=== PATIENT | female | born 1980 | race Native Hawaiian/Other Pacific Islander ===

== ENCOUNTER → 2024-06-23 | Outpatient (CLI) | payer OTHER ==
--- NOTE | 2024-06-23 08:16 | US ---
EXAMINATION TYPE: US abdomen complete DATE OF EXAM: 06/23/2024 COMPARISON: NONE CLINICAL INDICATION: Female, 44 years old with history of R10.84 ABD PAIN; left sided pain, Dm, HTN, Cholecystectomy TECHNIQUE: Grayscale and color Doppler imaging of the abdomen was performed. FINDINGS: EXAM MEASUREMENTS: Liver Length: 16.7 cm Gallbladder Wall: Surgically absent CBD: 0.4 cm, color Doppler imaging was utilized to isolate the common bile duct for measurement. Spleen: 10.5 cm Right Kidney: 12.8x5.4x7.3 cm Left Kidney: 11.8x5.5x5.1 cm TRACK ANNOUNCER NOTES: limited due to pt body habitus/ overlying bowel Pancreas: Obscured by bowel gas Liver: Increased attenuation, decreased visualization of vessels suggestive of fatty infiltrate Gallbladder: Surgically absent Evidence for sonographic Osborn's sign: No CBD: wnl Spleen: wnl Right Kidney: No hydronephrosis or masses seen Left Kidney: No hydronephrosis or masses seen Upper IVC: partially visualized Abd Aorta: partially visualized IMPRESSION: 1. No evidence for acute process. 2. Hepatic steatosis. [facility], , 06/23/2024 8:14 AM
== END | disposition home or self-care (01) ==
LOC: RADUSWWP 07:02
PROVIDERS: ATTEND Family Medicine
DX: K76.0 Fatty (change of) liver, not elsewhere classified (principal); I10 Essential (primary) hypertension; E11.9 Type 2 diabetes mellitus without complications; Z90.49 Acquired absence of other specified parts of digestive tract
CPT/HCPCS: 76700

== ENCOUNTER → 2024-12-22 | Day surgery (SDC) | payer OTHER ==
--- NOTE | 2024-12-22 09:11 | USB ---
Risk Values: Mariela 5 year model risk: 0.9%. NCI Lifetime model risk: 10.5%. Findings: Ultrasound was performed left breast in the upper outer quadrant with attention to the 11:00 position. The lesion could not be seen with certainty and biopsy was deferred. Recommend stereotactic core biopsy. Recommend placement of the clip postbiopsy and confirming this is the same location as the previously described ultrasound abnormality. Management: Stereotactic Core Biopsy of the left breast. A clinical breast exam by your physician is recommended on an annual basis and results should be correlated with mammographic findings. This exam should not preclude additional follow-up of suspicious palpable abnormalities. Results were given to the patient verbally at the time of exam. [facility], , 12/22/2024 9:08 AM. Electronically signed and approved by: Kwabena Acevedo M.D. Radiologis
== END ==
LOC: RADUSWWP 07:22
PROVIDERS: ATTEND Family Medicine
DX: Z53.8 Procedure and treatment not carried out for other reasons (principal); R92.8 Other abnormal and inconclusive findings on diagnostic imaging of breast

== ENCOUNTER → 2025-01-05 | Day surgery (SDC) | payer OTHER ==
[~2025-01-05] MED LIST: ALPRAZolam 0.25 MG TAB PO PRN; ALPRAZolam 0.5 MG TAB PO PRN
[2025-01-05 10:41] VITALS: RESP 16
[2025-01-05 11:30] VITALS: BP 145/97; PULSE 78; TEMP 98.2
--- NOTE | 2025-01-17 08:24 | MM ---
Risk Values: Mariela 5 year model risk: 0.9%. NCI Lifetime model risk: 10.5%. Prior Study Comparison: 10/12/2020 Bilateral Screening Mammogram, [facility]. 11/07/2021 Bilateral Screening Mammogram, [facility]. 12/08/2024 Bilateral MG screening mammo w CAD, [facility]. Pathology Description: Marker Left Behind. Approach: CC FA Needle Type: Eviva Cores: 12 Skin Nicks: 1 Gauge: 9 The procedure of stereotactic guided core biopsy was explained to the patient. Benefits, alternatives, and risks were discussed. An informed consent was then obtained. The shortness pathway for biopsy was chosen. Shortness pathway was superior approach. A vacuum assisted biopsy gun was used to obtain multiple core samples. The patient tolerated the procedure well without any immediate complication. The patient was kept in the radiology department for short stay after the procedure and then discharged home in stable condition. Post biopsy mammogram performed shows the clip to appear in satisfactory position relative to the targeted area of concern on the preprocedure images. Impression: Successful, Uncomplicated Stereotactic Guided Core Biopsy Of Area Of Concern In The left Breast. [facility], , 01/05/2025 12:28 PM. Pathology Results: Result: Benign, Fibroadenoma. Pathology and radiology were reviewed. Findings are concordant. LEFT BREAST, CORE BIOPSY: Fibroadenoma with myxoid change (see note). Notes Intradepartmental consultation at the daily pathology consensus conference is in agreement with the assessment. Overall Assessment: Benign Management: Diagnostic Mammogram of the left breast in 6 months. Electronically signed and approved by: Alexy Gonzales DO
== END ==
LOC: RADMAMWWP 09:54
PROVIDERS: ATTEND Family Medicine
DX: D24.2 Benign neoplasm of left breast (principal)
CPT/HCPCS: 88305; 19081; A4648; J2003